=== PATIENT | male | born 1950 | race Caucasian/White ===

== ENCOUNTER 2017-12-20 15:21 | Outpatient (CLI) | payer MEDICARE, BC ==
[~2017-12-20] VITALS: Ht 182.9 cm; Wt 90.7 kg
[2017-12-20 15:30] VITALS: BP 140/68
--- NOTE | 2017-12-20 18:58 | GI Initial Consult Note ---
History of Present Illness General Date patient seen: Dec 20, 2017 Time patient seen: 14:00 Referring physician: None Reason for Consultation: colonoscopy screening Present Illness HPI A 67 year old male who presents to the clinic for colonoscopy screening. Pt has no s/sx of nausea, vomiting, or diarrhea. Patient is ambulatory, NAD, and not at fall risk. His last colonoscopy was over 10 years ago. Med list reviewed/reconciled: Yes Patient History History Provided By: Patient, Medical Record Past Medical History: none PMH Narrative deviated septum, s/p surgery Family History Narrative Mother - Breast cancer Social History: Reports: other - coffee; Denies: smoking, alcohol use, drug use Review of Systems All Other Systems: negative except mentioned in HPI Physical Exam Vital Signs Date Time Temp Pulse Resp B/P (MAP) Pulse Ox O2 Delivery O2 Flow Rate FiO2 12/20/17 15:30 97.7 52 140/68 96 Sp02 EP Interpretation: reviewed, normal General Appearance: well appearing, no apparent distress, alert Head: normocephalic EENT: PERRL/EOMI, normal ENT inspection Neck: supple Respiratory: normal breath sounds, no respiratory distress Cardiovascular: normal rate Gastrointestinal: normal inspection, non tender, soft, normal bowel sounds, non -distended Rectal: deferred Genitourinary: deferred Musculoskeletal: normal inspection, back normal Neurologic: normal inspection, alert, oriented x3, responsive Psychiatric: normal inspection, judgement/insight normal, memory normal Skin: normal inspection, normal color, no rash, warm/dry, palpation normal, well hydrated Lymphatic: normal inspection, no adenopathy GI: Plan Problems: (1) GERD (gastroesophageal reflux disease) (2) Encounter for screening colonoscopy Plan EGD/Colonoscopy scheduled. - CLD & (Nulytely/Suprep/Movi-Prep) prep instructions given and acknowledged by patient. - NPO @ [place] day prior procedure explained. Will follow up with additional recs post procedure. Seen with Dr. Weiner. Thank you for this patient referral. The patient was seen and examined at bedside and all new and available data was reviewed in the patients chart. I agree with the above findings, impression and plan. (Patient seen earlier today. Signature stamp does not reflect patient encounter time.). - MD Lorena Beatty,[facility] STRATEGIC PLANNING ANALYST Dec 20, 2017 18:58
== END 2017-12-20 15:51 | disposition home or self-care (01) ==
LOC: EDBD → PAN 15:21
DX: Z12.11 Encounter for screening for malignant neoplasm of colon (principal); K21.9 Gastro-esophageal reflux disease without esophagitis
CPT/HCPCS: 99202

== ENCOUNTER 2017-12-27 08:00 | Day surgery (SDC) | payer MEDICARE, BC ==
[2017-12-27] VITALS (7 sets, daily range): BP systolic 115–135; BP diastolic 67–83
[~2017-12-27] VITALS: Ht 182.9 cm; Wt 90.7 kg
[2017-12-27] MEDS ORDERED: Midazolam 2mg/2ml Inj ONE (08:01)
[2017-12-27] MEDS ORDERED: LR 1000ml ONE (08:01)
[2017-12-27] MEDS ORDERED: fentaNYL 100 mcg/2 mL IV ONE (08:01)
[2017-12-27] MEDS ORDERED: Propofol 200mg/20ml IV ONE (08:01)
[2017-12-27] MEDS ORDERED: NKM (08:47)
--- NOTE | 2017-12-27 09:49 | Short Stay Surgery H&P ---
History of Present Illness History of Present Illness Chief Complaint see recent office note HPI Ari Leblanc is a 67 year old male who was admitted on for Gerd,Colon Screening Patient History Allergies: Coded Allergies: No Known Allergies (Unverified , 12/21/17) Medication History Scheduled No Known Medications* (NKM - No Known Medications*), 0 ., (Reported) Physical Exam Vital Signs Last Vital Signs Date Time Temp Pulse Resp B/P (MAP) Pulse Ox O2 Delivery O2 Flow Rate FiO2 12/27/17 08:44 Room Air 12/27/17 08:42 97.6 54 18 134/70 97 Plan Attestation Are the patient's medical conditions optimized for surgery? Rony Weiner MD Dec 27, 2017 09:49
--- NOTE | 2017-12-27 09:50 | Pre-Procedure Note/Attestation ---
Pre-Procedure Note/Attestation Complete Prior to Procedure Planned Procedure: not applicable Procedure Narrative: esophagogastroduodenoscopy and colonoscopy Indications for Procedure Pre-Operative Diagnosis: screening colonoscopy, GERD Attestation I attest that I discussed the nature of the procedure; its benefits; risks and complications; and alternatives (and the risks and benefits of such alternatives ), prior to the procedure, with the patient (or the patient's legal territory service representative). I attest that, if there was a reasonable possibility of needing a blood transfusion, the patient (or the patient's legal territory service representative) was given the [facility] standardized written summary, pursuant to the [place] Blood Safety Act ([place] Health and Safety Code # 1645, as amended). I attest that I re-evaluated the patient just prior to the surgery and that there has been no change in the patient's H&P, except as documented below: Rony Weiner MD Dec 27, 2017 09:50
[2017-12-27] MEDS ORDERED: LR 1000ml 1,000 ML IVLG SCH (10:16)
--- NOTE | 2017-12-27 10:16 | Anethesia Preoperative Eval ---
Anesthesia Pre-op PMH/ROS General Date of Evaluation: Dec 27, 2017 Time of Evaluation: 09:56 Anesthesiologist: Maira ASA Score: ASA 2 Mallampati Score Class I : Soft palate, uvula, fauces, pillars visible Class II: Soft palate, uvula, fauces visible Class III: Soft palate, base of uvula visible Class IV: Only hard plate visible Mallampati Classification: Class II Surgeon: Regine Diagnosis: Abdominal pain Surgical Procedure: EGD Colonoscopy Anesthesia History: none Family History: no anesthesia problems Allergies: Coded Allergies: No Known Allergies (Unverified , 12/21/17) Medications: see eMAR Patient NPO?: Yes Past Medical History Cardiovascular: Denies: HTN, CAD, [place], valve dz, arrhythmia, other Pulmonary: Denies: asthma, COPD, [place], other Gastrointestinal/Genitourinary: Reports: GERD; Denies: CRI, ESRD, other Neurologic/Psychiatric: Denies: dementia, CVA, depression/anxiety, TIA, other Endocrine: Denies: DM, hypothyroidism, steroids, other HEENT: Denies: cataract (L), cataract (R), glaucoma, [place] (L), [place] (R), other Hematology/Immune: Denies: anemia, DVT, bleeding disorder, other Musculoskeletal/Integumentary: Denies: OA, RA, DJD, DDD, edema, other PMH Narrative: as above PSxH Narrative: see H&P Anesthesia Pre-op Phys. Exam Physician Exam Last Vital Signs Date Time Temp Pulse Resp B/P (MAP) Pulse Ox O2 Delivery O2 Flow Rate FiO2 12/27/17 08:44 Room Air 12/27/17 08:42 97.6 54 18 134/70 97 Constitutional: NAD Neurologic: CN 2-12 intact Cardiovascular: RRR Respiratory: CTA Gastrointestinal: S/NT/ND Airway Exam Mallampati Score: Class II MO: full ROM: full Teeth: intact Dentures: no upper, no lower Anesthesia Pre-op A/P Labs see chart Studies Pre-op Studies: EKG - NSR Risk Assessment & Plan Assessment: ASAv 2 Plan: MAC Status Change Before Surgery: Eugene Hwang MD Dec 27, 2017 10:16
[2017-12-27] MEDS ORDERED: fentaNYL 100 mcg/2 mL IV PRN (10:30)
--- NOTE | 2017-12-27 10:47 | Endoscopy Procedure Note ---
Endoscopy Procedure Note General Indication for Procedure: screening colon, GERD Procedures Performed: EGD, colonoscopy Operative Findings/Diagnosis: 4 polyps, gastritis Specimen: yes Pt Tolerated Procedure Well: Yes Estimated Blood Loss: none Anesthesia Anesthesiologist: catherine Anesthesia: MAC Inserted Devices Implant(s) used?: No Quality Quality of Bowel Preparation: Good Did scope reach the cecum?: Yes Was there any complications?: No GI Core Measures 50 yrs or older w/o bx or poly: No 10yrs. F/U not recommended: Yes If not recommended, why?: Above average risk 10 yrs. F/U needed: Yes 18 years or older w/prev. colo: No Rony Weiner MD Dec 27, 2017 10:47
--- NOTE | 2017-12-27 10:49 | Immediate Post-Op Evaluation ---
Immediate Post-Op Evalulation Immediate Post-Op Evalulation Procedure: EGD Colonoscopy Date of Evaluation: Dec 27, 2017 Time of Evaluation: 10:48 IV Fluids: 600 Blood Products: none Estimated Blood Loss: none Urinary Output: none Blood Pressure Systolic: 118 Blood Pressure Diastolic: 62 Pulse Rate: 70 Respiratory Rate: 20 O2 Sat by Pulse Oximetry: 99 Temperature (Fahrenheit): 97.7 Pain Score (1-10): 1 Nausea: No Vomiting: No Complications none Patient Status: awake, patent, none Hydration Status: adequate Eugene Rao MD Dec 27, 2017 10:49
--- NOTE | 2017-12-27 15:00 | Procedure Note ---
DATE OF PROCEDURE: 12/27/2017 SURGEON: Rony Weiner M.D. ANESTHESIOLOGIST: Dr. Rao. REFERRING PHYSICIAN: Marc Iverson M.D. PROCEDURE: Colonoscopy with biopsy and endoscopy with biopsy. ANESTHESIA: Per Dr. Rao. INSTRUMENT: Olympus adult flexible upper endoscope and colonoscope. INDICATION: Screening colonoscopy evaluation, chronic GERD. The procedure, risks, benefits, and possible consequences, including hemorrhage, aspiration, perforation and infection, and alternative treatments, were explained to the patient/legal guardian by Dr. Rony Weiner and the patient/legal guardian understood and accepted these risks. DESCRIPTION OF PROCEDURE: After informed consent was obtained and the patient was adequately sedated, Olympus upper endoscope was advanced from the mouth into the second portion of duodenum and retroflexion was performed in the stomach. The patient had diffuse gastritis. Random biopsy from antrum and body was obtained to rule out H. pylori infection. The rest of the upper endoscopy examination grossly looked within normal limits. The patient also had evidence of mild duodenitis. At this time, the upper endoscope was retrieved and the procedure was terminated. Then the patient was turned over for colonoscopy. First, rectal examination was performed which was normal. Then, the scope was advanced from rectum into the cecum and then subsequently to the terminal ileum. Quality of prep was good. The patient had one diminutive polyp in the ascending colon, so 1 diminutive polyp in the ascending colon was removed with cold biopsy forceps technique. The patient had also 3 other polyps in the transverse colon, they were all very small, the largest one maybe 4 mm, all removed with the cold biopsy forceps technique. The patient had some scattered maybe 3 or 4 diverticula in the left colon. No further polyp was seen. Retroflexion of rectum showed evidence of few small nonbleeding internal hemorrhoids. SUMMARY OF FINDINGS: 1. Diffuse gastritis, suspicious for H. pylori, status post biopsy. 2. Mild duodenitis. 3. Four colonic polyps removed, see above for details. 4. Scattered diverticulosis in the left colon. 5. Small internal hemorrhoids. RECOMMENDATIONS: 1. Follow up biopsy results and treat accordingly. Treat for H. pylori if the biopsy comes back positive followed by breath test. 2. The patient had 4 polyps, but they were diminutive and small. Depending on the pathology, we recommend either 3 to 5 years' followup for repeat colonoscopy. I want to thank, Dr. Marc Iverson, for this kind referral. Rony Weiner M.D. DR: Zabrina JOB#: [id number] CC: Marc Iverson M.D.
[2017-12-28 07:51] VITALS: BP 124/76
--- NOTE | 2017-12-28 07:51 | 48 Hour Post Anesthesia Eval ---
Post Anesthesia Evaluation Procedure: EGD Colonoscopy Date of Evaluation: Dec 27, 2017 Time of Evaluation: 11:25 Blood Pressure Systolic: 124 0: 76 Pulse Rate: 68 Respiratory Rate: 20 Temperature (Fahrenheit): 97.6 O2 Sat by Pulse Oximetry: 98 Airway: patent Nausea: No Vomiting: No Pain Intensity: 1 Hydration Status: adequate Cardiopulmonary Status: stable Mental Status/LOC: patient returned to baseline Follow-up Care/Observations: n/a Post-Anesthesia Complications: none Follow-up care needed: ready to discharge Eugene Rao MD Dec 28, 2017 07:51
--- NOTE | 2017-12-28 16:42 | Cardiology Report ---
APPROVED REPORT EKG Measurement Heart [id number] CT [id number] Sinus bradycardia Nonspecific T wave abnormality Abnormal ECG
== END 2017-12-27 12:05 | disposition home or self-care (01) ==
LOC: GAS 08:00 → EDBD 10:00 → GAS 12:05
DX: Z12.11 Encounter for screening for malignant neoplasm of colon (principal); D12.2 Benign neoplasm of ascending colon; D12.3 Benign neoplasm of transverse colon; K57.30 Diverticulosis of large intestine without perforation or abscess without bleeding; K64.8 Other hemorrhoids; K21.9 Gastro-esophageal reflux disease without esophagitis; K29.70 Gastritis, unspecified, without bleeding; B96.81 Helicobacter pylori [H. pylori] as the cause of diseases classified elsewhere; K29.80 Duodenitis without bleeding
CPT/HCPCS: 43239; 45380; 93005; J2250; J2704; J3010; 94003; 94150